=== PATIENT | female | born 1970 | race Caucasian/White ===

== ENCOUNTER 2020-02-03 07:21 | Outpatient (CLI) | payer BC, SELFPAY ==
--- NOTE | ~2020-02-03 | MM_ITS ---
EXAMINATION: MM screening maria m BI w denise HISTORY: Screening mammogram TECHNIQUE: Craniocaudal and mediolateral oblique 3-D tomosynthesis images were obtained and synthetic 2-D images were generated. CAD analysis was submitted and interpreted. COMPARISON: 06/26/2018, 05/29/2014 bilateral digital screening mammogram examinations BREAST PARENCHYMAL COMPOSITION: There are scattered areas of fibroglandular density. FINDINGS: There is no evidence of suspicious mass, calcification, or architectural distortion to sugg est malignancy in either breast. There has been no suspicious interval change. IMPRESSION: 1. No mammographic evidence of malignancy. 2. Recommend routine screening mammography in one year. BI-RADS Category 1: Negative Reviewed, dictated and finalized at location A.
== END 2020-02-03 07:22 | disposition home or self-care (01) ==
PROVIDERS: PCP Family Medicine; Visit Provider Family Medicine
DX: Z12.31 Encounter for screening mammogram for malignant neoplasm of breast (principal)
CPT/HCPCS: 77063; 77067

== ENCOUNTER 2020-05-12 07:04 | Outpatient (CLI) | payer BC, SELFPAY ==
--- NOTE | ~2020-05-12 | MR_ITS ---
EXAMINATION: MR knee LT wo con DATE: 05/12/2020 08:04 INDICATION: Left medial femoral condyle fracture. TECHNIQUE: Magnetic resonance imaging (MRI) of the left knee was performed without intravenous contra st. Sequences included axial PD-weighted FS FSE, coronal PD-weighted FSE and PD-weighted FS FSE, sagi ttal PD-weighted FSE, and sagittal T2-weighted FS FSE. COMPARISON: Left knee radiographs 05/06/2020 FINDINGS: Medial compartment: There is a complex tear involving body and posterior horn of medial meniscus. There is full-thickness cartilage loss of tibial condyle involving the central and medial articular surface with mild subcho ndral edema-like marrow signal intensity. There is full-thickness cartilage loss of femoral condyle i nvolving the central and medial articular surface. There is extensive cortical remodeling of the femo ral condyle with irregularity of the cortical surface, low signal trabecular fracture lines, and mode rate subchondral edema-like marrow signal intensity. Osteophytes are noted. Lateral compartment: Lateral meniscus is normal. There is cartilage surface irregularity of femoral condyle. Tibial cartil age is normal. Marginal osteophytes are noted. Patellofemoral compartment: There is shallow partial-thickness cartilage loss of patellar medial facet. There is deep partial thi ckness cartilage loss of medial trochlea. Marginal osteophytes are noted. Ligaments and tendons: The anterior and posterior cruciate ligaments are normal. There are changes of prior sprains of media l collateral ligament and fibular collateral of and characterized by thickening and increased signal intensity proximally. There is moderate patellar tendinopathy. Fluid: There is a moderate-sized knee joint effusion with synovitis. IMPRESSION: 1. Severe chondrosis of medial compartment with subchondral trabecular fractures and cortical irregul arity, moderate chondrosis of patellofemoral compartment, and mild chondrosis of lateral compartment. 2. Tear of medial meniscus. 3. Moderate-sized knee joint effusion with synovitis. Reviewed, dictated and finalized at location A. [employer] IMPRESSION: 1. Severe chondrosis of medial compartment with subchondral trabecular fracture s and cortical irregularity, moderate chondrosis of patellofemoral compartment, and mild chondrosis of lateral compartment. 2. Tear of medial meniscus. 3. Moderate-sized knee joint effusion with synovitis.
== END 2020-05-12 07:05 | disposition home or self-care (01) ==
PROVIDERS: PCP Family Medicine; Visit Provider Orthopaedic Surgery
DX: M25.462 Effusion, left knee (principal); S83.242A Other tear of medial meniscus, current injury, left knee, initial encounter; X58.XXXA Exposure to other specified factors, initial encounter
CPT/HCPCS: 73721

== ENCOUNTER 2020-05-19 08:58 | Outpatient (CLI) | payer BC, SELFPAY ==
--- NOTE | 2020-05-19 10:16 | ECG_ITS ---
Measurements Intervals [place] Rate: 66 P: 46 OR: 161 QRS: 61 QRSD: 101 T: 40 QT: 381 QTc: 400 Interpretive Statements SINUS RHYTHM NORMAL ECG Electronically Signed On 05-19-2020 13:35:19 KNITTING SUPERVISOR by Omer Elizabeth D.O.
[2020-05-19 10:37] LABS: Basophils Absolute Auto 0.1 K/mm3 (0.0-0.1); Basophils Percent Auto 1.2 % (0.2-1.2); Eosinophils Absolute Auto 0.2 K/mm3 (0-0.3); Eosinophils Percent Auto 2.4 % (0-4.4); Hematocrit 43.6 % (37.0-47.0); Hemoglobin 14.8 g/dL (12.0-15.0); Immature Granulocyte Absolute 0.02 K/mm3 (0.00-0.031); Immature Granulocyte Percent A 0.2 % (0-0.5); Lymphocytes Absolute Auto 3.86 K/mm3 (0.9-3.2); Lymphocytes Percent Auto 45.8 % (18.3-44.2); Mean Corpuscular HGB Conc 33.9 g/dl (32-36); Mean Corpuscular Hemoglobin 31.4 pg (26-34); Mean Corpuscular Volume 92.4 fl (80-100); Mean Platelet Volume 9.9 fl (7.4-10.4); Monocytes Absolute Auto 0.5 K/mm3 (0.1-0.6); Monocytes Percent Auto 5.3 % (2.6-8.5); Neutrophils Absolute Auto 3.8 K/mm3 (1.3-6.7); Neutrophils Percent Auto 45.1 % (45.5-73.1); Platelet Count Result 339 k/mm3 (150-375); Red Blood Count 4.72 M/mm3 (4.2-5.4); Red Cell Distribution Width 13.5 % (11.5-14.5); White Blood Count 8.4 K/mm3 (4.5-10.0)
== END 2020-05-19 08:59 | disposition home or self-care (01) ==
LOC: ANHSURGERY 09:01
PROVIDERS: PCP Family Medicine; Visit Provider Orthopaedic Surgery
DX: Z01.818 Encounter for other preprocedural examination (principal); M17.12 Unilateral primary osteoarthritis, left knee; I10 Essential (primary) hypertension
CPT/HCPCS: 36415; 85025; 86850; 86900; 86901; 87081; 93005

== ENCOUNTER 2020-05-22 00:39 | Outpatient (CLI) | payer BC, SELFPAY ==
[2020-05-22 18:38] LABS: SARS-CoV-2 RNA PCR Negative
== END 2020-05-22 00:40 | disposition home or self-care (01) ==
LOC: ANHCOVIDDT 00:39
PROVIDERS: PCP Family Medicine; Visit Provider Orthopaedic Surgery
DX: Z01.812 Encounter for preprocedural laboratory examination (principal); Z20.822 Contact with and (suspected) exposure to COVID-19
CPT/HCPCS: C9803; U0003

== ENCOUNTER 2020-05-25 01:53 | Day surgery (SDC) | payer BC, SELFPAY ==
[2020-05-19 09:35] VITALS: BMI 31.4
[2020-05-19 10:00] VITALS: BP 109/62; PULSE 89; RESP 16; TEMP 37.2; O2SAT 97
[2020-05-25] VITALS (9 sets, daily range): BP systolic 103–123; BP diastolic 52–84; PULSE 84–106; RESP 16–23; TEMP 36–36.2; O2SAT 93–100
--- NOTE | ~2020-05-25 | XR_ITS ---
EXAMINATION: XR knee LT 2V DATE: 05/25/2020 09:49 INDICATION: Left knee arthroplasty. Postop. TECHNIQUE: 2 views of left knee were obtained. COMPARISON: Left knee radiographs 05/06/2020 FINDINGS: There is a medial compartment arthroplasty in near-anatomic alignment. No fracture. There i s mild osteoarthritis of the lateral and patellofemoral compartments characterized by marginal osteop hytes. There is a moderate-sized knee joint effusion. There is gas in the knee joint and soft tissues , consistent with recent surgery. IMPRESSION: 1. Medial compartment arthroplasty in near-anatomic alignment. 2. Mild osteoarthritis of lateral and patellofemoral compartments. Reviewed, dictated and finalized at location A. 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
--- NOTE | 2020-05-25 06:30 | P.PNAN_ITS ---
Anes - Initial Pre Proc Eval Procedure: Operation Date: 05/25/20 07:30 Proposed Procedures p Left Unicompartmental Knee Arthroplasty - Von Whittington MD Date/Time: 05/25/20 06:30 Surgeon: Von Whittington MD Pre Op Diagnosis: Left OA Patient Data Age: 49 Gender: F Height: 1.52 m Weight: 73 kg Last Vital Signs Temp 37.2 C 05/19/20 10:00 Pulse 89 05/19/20 10:00 Resp 16 05/19/20 10:00 BP 109/62 05/19/20 10:00 Pulse Ox 97 05/19/20 10:00 Allergies Allergy/AdvReac Type Severity Reaction Status Date / Time No Known Allergies Allergy Unverified 05/19/20 09:29 Home Medications Medication Instructions Recorded Confirmed Type atorvastatin 40 mg tablet 40 mg PO HS 05/06/20 05/19/20 History citalopram 40 mg tablet 40 mg PO QAM 05/06/20 05/19/20 History diclofenac sodium 50 mg 50 mg PO DAILY 05/06/20 05/19/20 History tablet,delayed release sumatriptan succinate 100 mg tablet See Rx Instructions PO .COMPLEX 05/06/20 05/19/20 History rivaroxaban 10 mg tablet 10 mg PO DAILY #14 tablet 05/14/20 05/19/20 Rx acetaminophen 1,000 mg PO Q6H PRN 05/19/20 05/19/20 History amitriptyline 20 mg PO HS 05/19/20 05/19/20 History Patient hx anesthesia problems: none Family hx anesthesia problems: none PMFSH Past Medical History Medical History (Updated 05/21/20 @ 08:09 by Chris Borja DO) Anxiety BMI 31.0-31.9,adult Depression GERD (gastroesophageal reflux disease) Hyperlipidemia Osteoarthritis of left knee Surgical History Surgical History (Updated 05/13/20 @ 10:48 by Von Whittington MD) H/O knee surgery left meniscectomy 2016, Dr. Saul H/O neck surgery 2003, Dr. Marlow Family History Family History Other Cerebrovascular accident Diabetes mellitus Heart disease Hypertension Social History Social History Smoking packs per day: 1 Smoking cigarettes per day: 20.0 Years smoked: 13 Smoking pack-years: 13.00 Smoking status: Former smoker Smoking end date: 11/20/07 Alcohol intake: current Alcohol use details: SOCIAL DRINKER Substance use: former Substance use type: marijuana Living arrangements: with family Additional living arrangements comments: , 3 CHILDREN Additional occupation/education comments: [employer] Gender identity (if verbalized by the patient): Female Spiritual care concerns: No Anes - Eval Final PreProcedure Day of Procedure 05/25/20 06:30 Patient weight: obese Heart: regular rate and rhythm Lungs: clear to auscultation and normal air movement Airway: Mallampati scale class II Neurological: alert and oriented Last oral intake: >/= 8 hours ASA classification: III Emergent: no Anesthetic plan: proceed Anesthesia type and monitoring: regional spinal and standard monitoring Informed Consent: The patient's anesthetic plan and its attendant risks and benefits were discussed with the patient/family/POA. Questions were solicited and answers provided to the satisfaction of the patient/family/POA.
--- NOTE | 2020-05-25 06:38 | WPDANESPNB ---
Anes - Peripheral Nerve Block Date/Time: 05/25/20 06:38 I have discussed with the patient/family/POA the placement of a peripheral nerve block for post-operative pain management, including associated risks, benefits, complications, and side effects. Alternative methods of post-operative analgesia were detailed. Questions were solicited and answers provided to the satisfaction of the patient/family/POA. Time-Out: A pre-procedural Time-Out was completed immediately before starting the procedure and confirmed: Patient Identification, Site, Procedure, Patient Position and the Availability of Requisite Equipment. Clinical Indications: Acute post-operative pain management requested by the operative surgeon. Nerve Block Insertion Note Anes-nerve block: adductor canal left Patient position: supine Skin prep: chlorhexidine Needle: 22 gauge, stimulating, insulated echogenic needle. Needle length: 80 mm Technique: ultrasound Injectate: bupivacaine 0.5% with epi 5 mcg/ml (30cc) Observations: tolerated well Complications: none Procedure start time:: 723 Procedure end time:: 726
[2020-05-25] MEDS: LACTATED RINGERS 1,000 ML 30 ML IV CONT ×2 (07:10→09:36)
--- NOTE | 2020-05-25 07:12 | WPDHPUPDATE1 ---
History and Physical Update Update Date/Time: 05/25/20 07:12 History and Physical has been reviewed, including an updated exam of the patient. There are NO changes in the patient's condition. Risks, benefits, and alternatives have been discussed and questions answered. Patient agrees to proceed with procedure.
[2020-05-25] MEDS: TRANEXAMIC ACID 1,000MG/ISO100 1,000 MG/100 ML BAG 200 MG IVPB (07:14)
[2020-05-25] MEDS: ACETAMINOPHEN 500 MG TABLET 1000 MG PO (07:16)
[2020-05-25] MEDS: ceFAZolin 2 GM/D5W 50 ML 2 GM/50 ML BAG IVPB (07:29)
[2020-05-25] MEDS: TRANEXAMIC ACID 1,000 MG/10 ML AMPUL 1000 MG TOPICAL (08:30)
[2020-05-25] MEDS: LIDO 1%/EPINEPHRINE 1:100,000 50 ML VIAL INFILTRATE (08:30)
[2020-05-25] MEDS: ceFAZolin SODIUM 1 GM VIAL IV PUSH (08:53)
[2020-05-25] MEDS: KETOROLAC 30 MG/ML VIAL (*BKC) IV PUSH (09:10)
--- NOTE | 2020-05-25 09:41 | P.OP_ITS ---
Procedure Note - Detailed Date of procedure: 05/25/20 Pre-op diagnosis: Left OA Left knee osteoarthritis Post-op diagnosis: same Procedure performed: Left knee medial unicompartmental replacement Description of procedure: The patient was identified and the proper site identified. In the preop holding area the anesthesia team performed a left lower extremity block. She was then taken to the operating room and transferred to the OR table placing her supine taking care to pad his torso and extremities. After general anesthetic induction and intubation. a nonsterile tourniquet was placed high on the left thigh. The extremity was positioned, prepped, and draped in the usual sterile fashion. The extremity was exsanguinated and the tourniquet was inflated to 300 mmHg remaining up for approximately 56 minutes. An anterior midline incision was made and sharp dissection carried down through the subcutaneous tissue to the extensor mechanism. A modified medial parapatellar arthrotomy was performed. The articular and meniscal cartilage of the lateral compartment was inspected and noted to be in excellent shape. Anterior and posterior cruciate ligaments were in continuity. There were extensive degenerat angi changes medial compartment and milder patellofemoral changes. The marginal osteophytes were removed from the notch and the medial aspect of the medial femoral condyle, and the remaining meniscal tissue was removed. The femur was sized to a extra small. With the appropriate spoon and tibial guide, a tibial resection was made. This was sized to AA. Using the mill, the flexion and extension gaps were balanced. A trial reduction was undertaken. The range of motion of the knee was noted to be from full extension to 120 ? of flexion with excellent stability through range of motion. The polyethylene insert tracked nicely. The trial components were removed. The real extra-small femur and size AA tray for the left knee were cemented into place. The knee was held in about 30? of flexion while the cement cured. The tourniquet was released and excess cement was removed from the joint. Hemostasis was carried out. The knee was flushed with a copious amount of irrigation. After trialing, the appropriate real size three insert for the femoral component was inserted and the stability again assessed. The knee was noted to be stable as it was taken through range of motion. The periarticular tissues were injected with 50 mL of 1% lidocaine and epinephrine solution and 1 g of tranexamic acid was left in the wound after a 3 minutes Betadine bath wound. The extensor mechanism was repaired with 0 looped PDS suture, the subcu with two of strata fix and tissue adhesive for the skin. A sterile dressing was applied. The patient tolerated the procedure well, was awakened, extubated, and taken to recovery room in stable condition. Anesthesia: regional and spinal Surgeon: Von Whittington MD Estimated blood loss (mL): 50 Tourniquet time (min): 56 Drains: No Packing: No Pathology: none sent Complications: No immediate complications Condition: stable Disposition: PACU
--- NOTE | 2020-05-25 09:53 | SUR.PHASEI ---
0945 2 VIEWS OF XRAYS TAKEN OF LT KNEE.
--- NOTE | 2020-05-25 11:09 | SUR.PHASEII ---
PHYSICAL THERAPIST KEVIN CALLED TO NOTIFY THAT PATIENT IS READY FOR THERAPY.
--- NOTE | 2020-05-25 11:42 | SUR.PHASEII ---
PT EATING LUNCH. NOW WORKING WITH PHYSICAL THERAPIST.
--- NOTE | 2020-05-25 12:43 | SUR.PHASEII ---
3179 DR. SAYRA EL FOR PATIENT TO GO HOME.
== END 2020-05-25 12:15 | disposition home or self-care (01) ==
PROVIDERS: PCP Family Medicine; Visit Provider Orthopaedic Surgery
PROC: (CPT 27446; principal; 2020-05-25 07:30)
DX: M17.12 Unilateral primary osteoarthritis, left knee (principal); G89.18 Other acute postprocedural pain; E78.5 Hyperlipidemia, unspecified; K21.9 Gastro-esophageal reflux disease without esophagitis; F41.8 Other specified anxiety disorders; Z87.891 Personal history of nicotine dependence; E66.9 Obesity, unspecified; Z68.31 Body mass index [BMI] 31.0-31.9, adult
CPT/HCPCS: 27446; 64447; 73560; 97161; A9270; C1713; C1776; J0690; J1100; J1170; J1885; J2250; J2370; J2405; J2704; J3010; J7120

== ENCOUNTER 2020-07-16 08:30 | Outpatient (RCR) | payer BC, SELFPAY ==
--- NOTE | 2020-05-21 15:49 | PTOPEVAL ---
PHYSICAL THERAPY EVALUATION - PRE OP L UNI COMPARTMENT KNEE Thank you for referring Alicja Chapa to [facility].? She was given pre-op information for out patient surgery as well as pre and post op exercises for L LE. She did not know post op plans - therefore did not formulate plan of care. If post-op care is desired, she was instructed to call [facility] to schedule her post op visit. Thank you for this PT referral. I agree with the above. Referring Physician Date Admitting Provider: Attending Provider: Von Whittington MD Referring Provider: *PT Outpatient Evaluation Start: 05/21/20 14:42 Freq: Status: Active Protocol: Document 05/21/20 14:35 SAÚL (Rec: 05/21/20 15:48 SAÚL [id number]) Therapy Assessment Status Assessment Status Assessment Status Evaluation Outpatient Past Medical History Past Medical History Source of Past Medical History Recalled from Previous Visit, Confirmed with Patient/Family Neurological History Hx Migraine Yes Cardiovascular History Hx Hypercholesterolemia Yes Hx Other Cardiac Disorders Yes: ACTIVE WORK IN THE [employer]. NO CARDIAC SYMPTOMS Respiratory History Hx Respiratory Disorders No Significant History Gastrointestinal History Hx Gastroesophageal Reflux Disease Yes: INTERMITTEN REFLUX Genitourinary History Hx Genitourinary Disorders No Significant History Musculoskeletal History Hx Arthritis Yes: LEFT KNEE, LT ELBOW Hx Orthopedic Surgery Yes: LT MENISCUS REPAIR 2017 Hx Spinal Surgery Yes: CERVICAL DISC SURG 2004 Hematological History Hx Hematological Disorders No Significant History Endocrine History Hx Endocrine Disorders No Significant History HEENT History Hx HEENT Disorders No Significant History Integumentary History Hx Skin Disorders No Significant History Reproductive History Hx Post Menopausal Yes Hx Other Reproductive Disorders Yes: CERVICAL DYSPLAGIA- COLD CONE BX 1996 Psychosocial History Hx Anxiety Yes Hx Depression Yes Pain History History of Any Previous or Ongoing No Significant History Instance of Pain Anesthesia History Hx Anesthesia Reactions No Significant History Evaluation Information Problem Diagnosis unilateral primary osteoarthritis, L knee Onset 2015 Subjective Information scheduled for unicomponent Query Text:As Reported By Patient/ knee replacement Family had multiple trauma to L knee - underwent medial meniscectomy - never has been painfree fr
--- NOTE | 2020-06-16 16:35 | PTOPEVAL ---
PHYSICAL THERAPY EVALUATION and PLAN OF CARE Thank you for referring Alicja Chapa to [facility].? Alicja is scheduled to be seen for physical therapy? 3x/week for 2 weeks, 2x/wk x 2 wks. Please review, sign, date and return this plan of care WALDEMAR. I agree with and certify that the following plan of care is medically necessary. Referring Physician Date Admitting Provider: Attending Provider: Von Whittington MD Referring Provider: *PT Outpatient Evaluation Start: 05/21/20 14:42 Freq: Status: Active Protocol: Document 06/16/20 15:06 SAÚL (Rec: 06/16/20 16:34 SAÚL [id number]) Therapy Assessment Status Assessment Status Assessment Status Evaluation Outpatient Past Medical History Past Medical History Source of Past Medical History Recalled from Previous Visit, Confirmed with Patient/Family Neurological History Hx Migraine Yes Cardiovascular History Hx Hypercholesterolemia Yes Hx Other Cardiac Disorders Yes: ACTIVE WORK IN THE [employer]. NO CARDIAC SYMPTOMS Respiratory History Hx Respiratory Disorders No Significant History Gastrointestinal History Hx Gastroesophageal Reflux Disease Yes: INTERMITTENT REFLUX Genitourinary History Hx Genitourinary Disorders No Significant History Musculoskeletal History Hx Arthritis Yes: LEFT KNEE, LT ELBOW Hx Orthopedic Surgery Yes: LT MENISCUS REPAIR 2016 Hx Spinal Surgery Yes: CERVICAL DISC SURG 2003 Hematological History Hx Hematological Disorders No Significant History Endocrine History Hx Endocrine Disorders No Significant History HEENT History Hx HEENT Disorders No Significant History Integumentary History Hx Skin Disorders No Significant History Reproductive History Hx Post Menopausal Yes Hx Other Reproductive Disorders Yes: CERVICAL DYSPLAGIA- COLD CONE BX 1995 Psychosocial History Hx Anxiety Yes Hx Depression Yes Pain History History of Any Previous or Ongoing No Significant History Instance of Pain Anesthesia History Hx Anesthesia Reactions No Significant History Evaluation Information Problem Diagnosis s/p L knee unicompartment replacement Onset 05/25/2020 Subjective Information Surgery was done as an out Query Text:As Reported By Patient/ patient - increased medication Family use due to increase pain intially. Now working on straightening L knee - still pretty painful. Sleeping better now - stiff in the
--- NOTE | 2020-06-24 13:18 | PCPTNOTE ---
Patient called & cancelled scheduled appointment this date no reason given.
--- NOTE | 2020-06-30 09:37 | PCPTNOTE ---
Patient called & cancelled scheduled appointment this date due to car not starting and weather.
--- NOTE | 2020-07-07 09:06 | PCPTNOTE ---
Patient called & cancelled scheduled appointment this date due to bad weather.
--- NOTE | 2020-07-07 13:27 | PCPTNOTE ---
Patient called & cancelled scheduled appointment this date due to inclimate weather.
--- NOTE | 2020-07-16 15:57 | PTOPEVAL ---
PHYSICAL THERAPY DISCHARGE SUMMARY Thank you for referring Alicja Chapa to [facility].? Ailcja has been seen for 9 times in PT. She has progresses well and has met most goals set. She has not reached full knee extension but she is able to perform L knee stretching on her own, so she should be able to achieve this on her own. Strength, ambulation and functional goals have been met. I agree with Alicja's discharge from PT. Referring Physician Date Admitting Provider: Attending Provider: Von Whittington MD Referring Provider: Therapy Assessment Status Assessment Status Assessment Status Discharge Evaluation Information Problem Diagnosis s/p L knee unicompartment replacement Subjective Information Alicja states that the heat to Query Text:As Reported By Patient/ the back of the knee really Family helps in stretching at home. Able to tolerate prone knee hangs and having son stretch her knee easier after the most heat. L knee feeling good - no knee pain - just some muscle soreness. She has returned to work - doing well. Pain Assessment Self Report Pain Assessment Left Knee(s) Reported Pain Level 0 Pain Description Aching,Soreness Other Pain Description the joint has no pain,soreness with muscles Lowest Pain Intensity 0 Greatest Pain Intensity 4 Lower Extremity Range of Motion Knee Range of Motion Left Knee Flexion Range of Motion - Active 127 Knee Extension Range of Motion - Active 3 Query Text: Lower Extremity Muscle Strength Testing Hip Strength Left Hip Flexion Strength 5 Normal Hip Extension Strength 5 Normal Hip Abduction Strength 4+ Good + Hip Medial Rotation Strength 5 Normal Hip Lateral Rotation Strength 5 Normal Knee Strength Left Knee Flexion Strength 5 Normal Knee Extension Strength 5 Normal Palpation Assessment Palpation Palpation soft tissue tension present posterior knee - mainly lateral Elastic end feel with passive L knee extension stretching Gait Assessment Gait Pattern Assessment Other Gait Observations symmetrical stance/swing phase , mild decreased L knee extension in stance phase Stair Climbing Assessment Stair Climbing Assessment Stair Climbing Assistive Devices None Number of Steps Climbed (Steps) 4 Number of Repetitions (Repetitions) 2 Technique Alternating Steps Stair Climbing Dir
== END 2020-08-04 08:29 | disposition home or self-care (01) ==
LOC: ANHPT 08:30
PROVIDERS: PCP Family Medicine; Visit Provider Orthopaedic Surgery
DX: M17.12 Unilateral primary osteoarthritis, left knee (principal)
CPT/HCPCS: 97110; 97161

== ENCOUNTER 2021-09-01 10:58 | Outpatient (CLI) | payer BC, SELFPAY ==
--- NOTE | ~2021-09-01 | US_ITS ---
EXAMINATION: US soft tissue upper back DATE: 09/01/2021 11:52 INDICATION: Mass of subcutaneous tissue of left back. TECHNIQUE: Multiple grayscale and Doppler ultrasound images of the posterior thorax were obtained. COMPARISON: None FINDINGS: There is no abnormal mass in the patient's area of concern in left posterior thorax. IMPRESSION: 1. No abnormal mass in the patient's area of concern in left posterior thorax. Reviewed, dictated and finalized at location A.
== END 2021-09-01 10:59 | disposition home or self-care (01) ==
PROVIDERS: PCP Family Medicine; Visit Provider Family Medicine
DX: R22.2 Localized swelling, mass and lump, trunk (principal)
CPT/HCPCS: 76604

== ENCOUNTER 2024-09-03 09:07 | Outpatient (CLI) | payer BC, SELFPAY ==
--- NOTE | ~2024-09-03 | XR_ITS ---
Left Shoulder Technique: AP and scapular Y views were obtained. Clinical History: Pain Findings: No fracture or dislocation is seen. Osseous alignment is anatomic. The glenohumeral and acr omioclavicular joint spaces are preserved. Soft tissues are unremarkable. Impression: Unremarkable left shoulder radiographs. Reviewed, dictated and finalized at [facility]. Impression: Unremarkable left shoulder radiographs.
--- OUTSIDE RECORDS SUMMARY | 2024-09-03 09:40 | XMS_ITS | Clinical Summary ---
Author Organization [facility] Address [address] [place] [id number] Care Team Providers Care [employer] Hand Name Role Phone Marie Moy MD Primary Care Provider [phone] Social History Tobacco Use Types Packs/Day Years Used Date Smoking Tobacco: Never Assessed Comments Unknown Sex and Gender Information Value Date Recorded Sex Assigned at Not on file Legal Sex Female 8:07 PM CDT Gender Identity Not on file Sexual Orientation Not on file Plan of Treatment Health Maintenance Due Date Last Done Comments Cervical Cancer Screening Pa p Smear (Age 30 to 64) Every 3 Years 1969 Colorectal Cancer Screening Colonoscopy (10 Years) 1969 Annual Physical 1972 Hepatitis C 11/24/1987 Hepatitis B Vaccines (1 of 3 - 19+ 3-dose series) 1988 Cervical Cancer Screening Pa p with HPV Testing (Age 30 to 64) Every 5 Years 11/24/1999 Cervical Cancer Screening wi th HPV 11/24/1999 Zoster Vaccines (1 of 2) 11/24/2019 COVID-19 Vaccine (3 - 2023-2 5 season) 2024 12/25/2020, 12/04/2020 DTaP, Tdap and Td Vaccines ( 2 - Td or Tdap) 04/08/2024 04/08/2014 Mammogram Screening 05/29/2025 05/29/2023 Meningococcal B Vaccine Aged Out No l onger eligible based on patient's age to complete this topic Meningococcal Vaccine Aged Out No autumn alise eligible based on patient's age to complete this topic Pneumococcal Vaccine: Pediatrics (0 to 5 Years) and At-Risk Patients (6 to 49 Years) Aged Out No longer eligible b ased on patient's age to complete this topic RSV Immunizations Under 20 Months Aged Out No longer eligible b ased on patient's age to complete this topic Procedures Procedure Name Priority Date/Time Associated Diagnosis Comments MG SCREENING W CANDELARIA MARTA DIGI Routine 05/29/2023 8:22 AM DENTAL OFFICER Encounter for screening mammogram for malignant neoplasm of breast from Last 3 Months or Most Recently Relevant to Health Maintenance Results * MG SCREENING W CANDELARIA MARTA DIGI (05/29/2023 8:22 AM DENTAL OFFICER) Anatomical Region Laterality Modality Breast Bilateral Mammography 05/31/2023 12:5 6 PM DENTAL OFFICER Narrative 05/31/2023 12:59 PM DENTAL OFFICER EXAMINATION: MG SCREENING W CANDELARIA MARTA DIGI INDICATIONS: Screening TECHNIQUE: Digital full field CC and MLO screening mammography bilaterally to include 3-D Tomosynthesis technique. This study was read with the assistance of a computer-aided detection system. HISTORY: No reported breast complaint. No documented personal or first degree family history of breast cancer. No documented prior breast procedure. COMPARISON: 02/03/2020, 06/26/2018, 05/29/2014, and 12/28/2009. TISSUE DENSITY: There are scattered areas of fibroglandular density. FINDINGS: No suspicious microcalcification or mass. No developing asymmetry or architectural distortion. No axillary adenopathy. IMPRESSION: No significant interval change. No mammographic evidence of malignancy. RECOMMENDATION: Routine ScreeningBilateral OVERALL IMAGING ASSESSMENT: ACR BI-RADS 1 - NEGATIVE. Ordered By: MARIE MOY Interpreted By: Gavin Wallace, 05/31/2023 12:56 PM us Marie Moy MD MAMMO Final Resul t from Last 3 Months or Most Recently Relevant to Health Maintenance Insurance [facility] C/O PROVIDER SERVICES JOSE HUGHES [id number] Care Teams [employer] Relationship Specialty Start Date End Date Marie Moy MD [address] [place] [address] [place] [address] PCP - General 06/27/14
== END 2024-09-03 09:08 | disposition home or self-care (01) ==
PROVIDERS: PCP Nurse Practitioner Family; Visit Provider Nurse Practitioner Family
DX: M25.512 Pain in left shoulder (principal)
CPT/HCPCS: 73030